=== PATIENT | male | born 1975 | race Caucasian/White ===

== ENCOUNTER 2017-08-18 13:06 | Inpatient (IN) | payer MEDICAID, OTHER ==
[2017-08-18] MEDS: SOD CHLORIDE 0.9% 1,000 ML IV ×2 (16:30→18:45)
[2017-08-18] MEDS: INSULIN LISPRO 100 UNIT/ML VIAL SC (16:31)
[2017-08-18 16:44] LABS: ABNORMAL IP MESSAGE 1; HEMATOCRIT 37.6 % (42.0-52.0); HEMOGLOBIN 13.6 g/dl (14.0-18.0); MEAN CORPUSCULAR HEMOGLOBIN 34.4 pg (29.0-33.0); MEAN CORPUSCULAR HGB CONC 36.2 g/dl (32.0-37.0); MEAN CORPUSCULAR VOLUME 95.2 fl (82.0-101.0); MEAN PLATELET VOLUME 9.8 fl (7.4-10.4); PLATELET COUNT 173 10^3/UL (140-415); POSITIVE DIFF @See below; RED BLOOD COUNT 3.95 10^6/ul (4.70-6.10); RED CELL DISTRIBUTION WIDTH 11.4 % (11.5-14.5)
[2017-08-18 16:44] LABS: WHITE BLOOD COUNT 12.2 10^3/ul (4.8-10.8)
[2017-08-18 16:47] LABS: ADD UMIC YES; UR ASCORBIC ACID NEGATIVE (NEGATIVE); UR BILIRUBIN (Dip) NEGATIVE (NEGATIVE); UR BLOOD (Dip) 1+ mg/dL (NEGATIVE); UR CLARITY CLEAR (CLEAR); UR COLOR STRAW (YELLOW); UR GLUCOSE (Dip) 3+ mg/dL (NEGATIVE); UR KETONES (Dip) 2+ mg/dL (NEGATIVE); UR LEUKOCYTE ESTERASE (Dip) NEGATIVE Leu/ul (NEGATIVE); UR NITRITE (Dip) NEGATIVE (NEGATIVE); UR RBC 0 /HPF (0-5); UR SPECIFIC GRAVITY (Dip) 1.023 (1.003-1.030); UR TOTAL PROTEIN (Dip) 1+ mg/dl (NEGATIVE); UR UROBILINOGEN (Dip) NEGATIVE (NEGATIVE); UR WBC 0 /HPF (0-5)
[2017-08-18 16:56] LABS: ADD MAN DIFF? YES
[2017-08-18] MEDS: CEFTRIAXONE 1 GM/50 ML (PMX) 50 ML IVPB (17:03)
[2017-08-18 17:05] LABS: ALANINE AMINOTRANSFERASE 82 IU/L (13-69); ALBUMIN 4.7 g/dl (3.3-4.9); ALBUMIN/GLOBULIN RATIO 1.06; ALKALINE PHOSPHATASE 259 IU/L (42-121); ANION GAP 32 (8-16); ASPARTATE AMINO TRANSFERASE 62 IU/L (15-46); BILIRUBIN,INDIRECT 0.2 mg/dl (0-1.1); BILIRUBIN,TOTAL 0.2 mg/dl (0.2-1.3); BLOOD UREA NITROGEN 20 mg/dl (7-20); CALCIUM 10.6 mg/dl (8.4-10.2); CARBON DIOXIDE 13 mmol/L (21-31); CHLORIDE 87 mmol/L (97-110); CREATININE 0.85 mg/dl (0.61-1.24); GLUCOSE 392 mg/dl (70-220); LIPASE 64 U/L (23-300); POTASSIUM 3.9 mmol/L (3.5-5.1); SODIUM 128 mmol/L (135-144); TOTAL PROTEIN 9.1 g/dl (6.1-8.1)
[2017-08-18 17:15] LABS: BAND NEUTROPHILS % (M) 33 % (0-4); LYMPHOCYTES #M 0.7 10^3/ul (0.8-2.9); LYMPHOCYTES % (M) 6 % (15-51); MONOCYTE #M 1.3 10^3/ul (0.3-0.9); MONOCYTES % (M) 11 % (0-11); PLATELET ESTIMATE NORMAL; PROMYELOCYTES #M 0.1 10^3/ul (0-0); PROMYELOCYTES % (M) 1 % (0-0); SEG NEUT #M 6.5 10^3/ul (1.6-7.5); SEGMENTED NEUTROPHILS (M) % 49 % (39-77); SMUDGE%M 1 % (0-0)
[2017-08-18] MEDS ORDERED: morphine 2 MG INJ IV (17:30)
[2017-08-18] MEDS ORDERED: INSULIN HUMAN REGULAR 100 UNIT in SOD CHLORIDE 0.9% 99 ML IV (17:30)
[2017-08-18] MEDS ORDERED: ONDANSETRON 4 MG INJ IV (17:30)
[2017-08-18] MEDS ORDERED: NACL 0.9% 3 ML SYG IV (17:30)
[2017-08-18] MEDS ORDERED: DEXTROSE 50% 50 ML SYRINGE IV ×2 (17:30)
[2017-08-18] MEDS ORDERED: HYDROCODONE/APAP (5/325) TAB PO (17:30)
[2017-08-18] MEDS: ACCU-CHEK XX ×7 (17:30→23:30)
[2017-08-18] MEDS ORDERED: LORAZEPAM 2 MG INJ IV (17:30)
[2017-08-18] MEDS ORDERED: BISACODYL (EC) 5 MG TAB PO (17:30)
[2017-08-18 18:35] LABS: LACTIC ACID 1.3 mmol/L (0.5-2.0)
[2017-08-18] MEDS: AZITHROMYCIN 500MG/NS (PMX) 250 ML IVPB (18:39)
[2017-08-18] MEDS: POTASSIUM CHLORIDE (SR) 20 MEQ TAB PO (18:39)
[2017-08-18] MEDS: LACTATED RINGER'S 1,000 ML IV (18:39)
[2017-08-18 19:03] LABS: AADO2 Arterial 42.6 mmHg (7.0-24.0); Allen Test ACCEPTAB; Arterial Base Excess -8.6 mmol/L (-3.0-3); Arterial Blood Gas Oxygen Sat 95.5 mmHG (95.0-98.0); Arterial COHb 0.3 % (0.0-3.0); Arterial Fraction of Oxyhgb 95.1 % (93.0-99.0); Arterial HCO3 14.8 mmol/L (22.0-26.0); Arterial MetHb 0.1 % (0.0-1.5); Arterial Total Hemglobin 12.4 g/dl (12.0-18.0); Arterial pCO2 25.4 mmhg (35-45); MODE ROOM AIR; Site Right Radial
[2017-08-18 19:27] LABS: HEMOGLOBIN A1C 13.4 % (0-5.9)
[2017-08-18 19:30] LABS: PHOSPHORUS 2.8 mg/dl (2.5-4.9)
[2017-08-18 19:30] LABS: GLUCOSE, FASTING 227 mg/dl (70-110)
[2017-08-18 19:31] LABS: ALBUMIN 3.6 g/dl (3.3-4.9); ANION GAP 21 (8-16); BLOOD UREA NITROGEN 17 mg/dl (7-20); CALCIUM 8.4 mg/dl (8.4-10.2); CALCIUM 8.8 mg/dl (8.4-10.2); CARBON DIOXIDE 17 mmol/L (21-31); CHLORIDE 96 mmol/L (97-110); CHLORIDE 97 mmol/L (97-110); CREATININE 0.52 mg/dl (0.61-1.24); CREATININE 0.56 mg/dl (0.61-1.24); GLUCOSE 222 mg/dl (70-220); GLUCOSE 236 mg/dl (70-220); PHOSPHORUS 2.8 mg/dl (2.5-4.9); POTASSIUM 3.4 mmol/L (3.5-5.1); POTASSIUM 3.6 mmol/L (3.5-5.1); SODIUM 131 mmol/L (135-144)
[2017-08-18 19:50] LABS: MAGNESIUM 1.7 mg/dl (1.7-2.5)
[2017-08-18 20:10] LABS: LACTIC ACID 1.5 mmol/L (0.5-2.0)
[2017-08-18] MEDS: INSULIN HUMAN REGULAR 100 UNIT in SOD CHLORIDE 0.9% 99 ML IV (20:48)
[2017-08-18 20:52] LABS: ANION GAP 18 (8-16); BLOOD UREA NITROGEN 16 mg/dl (7-20); CALCIUM 8.7 mg/dl (8.4-10.2); CARBON DIOXIDE 18 mmol/L (21-31); CHLORIDE 98 mmol/L (97-110); CREATININE 0.54 mg/dl (0.61-1.24); GLUCOSE 240 mg/dl (70-220); POTASSIUM 3.4 mmol/L (3.5-5.1); SODIUM 131 mmol/L (135-144)
[2017-08-18] MEDS: POTASSIUM CHLORIDE 10 MEQ in SOD CHLORIDE 0.9% 1,000 ML IV (21:44)
[2017-08-18 22:22] LABS: ANION GAP 19 (8-16); BLOOD UREA NITROGEN 13 mg/dl (7-20); CALCIUM 8.8 mg/dl (8.4-10.2); CARBON DIOXIDE 17 mmol/L (21-31); CHLORIDE 100 mmol/L (97-110); CREATININE 0.45 mg/dl (0.61-1.24); GLUCOSE 195 mg/dl (70-220); POTASSIUM 3.1 mmol/L (3.5-5.1); SODIUM 133 mmol/L (135-144)
[2017-08-18 22:27] LABS: LACTIC ACID 1.2 mmol/L (0.5-2.0)
[2017-08-19] MEDS: DEXTROSE 5%-0.9% NACL 1,000 ML IV ×2 (00:57→10:30)
[2017-08-19 00:58] LABS: MAGNESIUM 1.6 mg/dl (1.7-2.5)
[2017-08-19] MEDS: POTASSIUM CHLORIDE 40 MEQ in SOD CHLORIDE 0.9% 250 ML IVPB (01:01)
[2017-08-19] MEDS: ACETAMINOPHEN 325 MG TAB PO (01:03)
[2017-08-19] MEDS: ACCU-CHEK XX ×3 (01:30→03:30)
[2017-08-19 01:52] LABS: ANION GAP 13 (8-16); BLOOD UREA NITROGEN 11 mg/dl (7-20); CALCIUM 8.6 mg/dl (8.4-10.2); CARBON DIOXIDE 22 mmol/L (21-31); CHLORIDE 104 mmol/L (97-110); CREATININE 0.36 mg/dl (0.61-1.24); GLUCOSE 68 mg/dl (70-220); PHOSPHORUS 1.3 mg/dl (2.5-4.9); SODIUM 136 mmol/L (135-144)
[2017-08-19] MEDS ORDERED: POTASSIUM CHLORIDE 10 MEQ in DEXTROSE 5%-0.9% NACL 1,000 ML IV (02:00)
[2017-08-19 02:04] LABS: POTASSIUM 2.8 mmol/L (3.5-5.1)
[2017-08-19] MEDS: POTASSIUM CHLORIDE 10 MEQ in DEXTROSE 5%-0.9% NACL 1,000 ML IV ×2 (02:16→12:17)
[2017-08-19] MEDS: INSULIN ASPART [NOVOLOG] 3 ML PEN SC ×6 (05:00→20:35)
[2017-08-19] MEDS ORDERED: DEXTROSE 50% 50 ML SYRINGE IV ×2 (05:30)
[2017-08-19] MEDS ORDERED: GLUCOSE GEL 15 GRAM TUBE PO ×2 (05:30)
[2017-08-19] MEDS ORDERED: GLUCAGON 1 MG INJ IM (05:30)
[2017-08-19] MEDS ORDERED: GLUCOSE GEL 15 GRAM TUBE BUCCAL (05:30)
[2017-08-19] MEDS: PANTOPRAZOLE 40 MG INJ IV (06:10)
[2017-08-19 06:47] LABS: WHITE BLOOD COUNT 10.3 10^3/ul (4.8-10.8)
[2017-08-19 06:47] LABS: ABNORMAL IP MESSAGE 1; HEMATOCRIT 31.5 % (42.0-52.0); HEMOGLOBIN 11.5 g/dl (14.0-18.0); MEAN CORPUSCULAR HEMOGLOBIN 34.2 pg (29.0-33.0); MEAN CORPUSCULAR HGB CONC 36.5 g/dl (32.0-37.0); MEAN CORPUSCULAR VOLUME 93.8 fl (82.0-101.0); PLATELET COUNT 142 10^3/UL (140-415); POSITIVE DIFF @See below; RED BLOOD COUNT 3.36 10^6/ul (4.70-6.10); RED CELL DISTRIBUTION WIDTH 11.4 % (11.5-14.5)
[2017-08-19 07:01] LABS: ADD MAN DIFF? YES
[2017-08-19 07:09] LABS: ALBUMIN 2.7 g/dl (3.3-4.9); ANION GAP 11 (8-16); BLOOD UREA NITROGEN 9 mg/dl (7-20); CALCIUM 8.2 mg/dl (8.4-10.2); CARBON DIOXIDE 23 mmol/L (21-31); CHLORIDE 104 mmol/L (97-110); CREATININE 0.33 mg/dl (0.61-1.24); GLUCOSE 142 mg/dl (70-220); PHOSPHORUS 2.2 mg/dl (2.5-4.9); POTASSIUM 3.4 mmol/L (3.5-5.1); SODIUM 135 mmol/L (135-144)
[2017-08-19 07:12] LABS: ALANINE AMINOTRANSFERASE 70 IU/L (13-69); ALBUMIN 2.9 g/dl (3.3-4.9); ALBUMIN/GLOBULIN RATIO 0.82; ALKALINE PHOSPHATASE 194 IU/L (42-121); ANION GAP 11 (8-16); ASPARTATE AMINO TRANSFERASE 92 IU/L (15-46); BILIRUBIN,INDIRECT 0.2 mg/dl (0-1.1); BILIRUBIN,TOTAL 0.2 mg/dl (0.2-1.3); BLOOD UREA NITROGEN 9 mg/dl (7-20); CALCIUM 8.7 mg/dl (8.4-10.2); CARBON DIOXIDE 24 mmol/L (21-31); CHLORIDE 103 mmol/L (97-110); CREATININE 0.38 mg/dl (0.61-1.24); GLUCOSE 156 mg/dl (70-220); MAGNESIUM 1.6 mg/dl (1.7-2.5); POTASSIUM 3.2 mmol/L (3.5-5.1); SODIUM 135 mmol/L (135-144); TOTAL PROTEIN 6.4 g/dl (6.1-8.1)
[2017-08-19 07:40] LABS: MAGNESIUM 1.7 mg/dl (1.7-2.5)
[2017-08-19 07:46] LABS: BAND NEUTROPHILS #M 3.9 10^3/ul (0.0-0.6); BAND NEUTROPHILS % (M) 38 % (0-4); LYMPHOCYTES #M 0.7 10^3/ul (0.8-2.9); LYMPHOCYTES % (M) 7 % (15-51); MONOCYTE #M 1.1 10^3/ul (0.3-0.9); MONOCYTES % (M) 11 % (0-11); MYELOCYTES #M 0.1 10^3/ul (0.0-0.0); MYELOCYTES % (M) 1 % (0-0); PLATELET ESTIMATE NORMAL; POLYCHROMASIA 1+ (0-0); REACTIVE LYMPHOCYTES #M 0.1 10^3/ul (0.0-0.0); REACTIVE LYMPHOCYTES% (M) 1 % (0-0); SEG NEUT #M 4.7 10^3/ul (1.6-7.5); SEGMENTED NEUTROPHILS (M) % 42 % (39-77); SMUDGE%M 4 % (0-0)
[2017-08-19] MEDS: INSULIN GLARGINE [LANtus] 3 ML PEN SC (08:15)
[2017-08-19] MEDS: CEFTRIAXONE 1 GM/50 ML (PMX) 50 ML IVPB (10:45)
[2017-08-19] MEDS: MAGNESIUM SULFATE 2 GM/50 ML 50 ML IVPB (10:45)
[2017-08-19] MEDS: POTASSIUM CHLORIDE 100 ML IVPB (11:00)
[2017-08-19] MEDS ORDERED: GUAIFENESIN/CODEINE 5ML CUP PO (13:30)
[2017-08-19] MEDS: GUAIFENESIN/DM 5ML CUP PO ×2 (13:36→18:26)
[2017-08-19] MEDS ORDERED: INSULIN ASPART [NOVOLOG] 3 ML PEN SC (17:55)
[2017-08-19] MEDS: AZITHROMYCIN 500MG/NS (PMX) 250 ML IVPB (18:26)
[2017-08-20] MEDS ORDERED: ACCU-CHEK XX ×2 (02:00)
[2017-08-20] MEDS: ACCU-CHEK XX (02:06)
[2017-08-20] MEDS: PANTOPRAZOLE 40 MG INJ IV (05:40)
[2017-08-20 05:51] LABS: ADD MAN DIFF? NO
[2017-08-20 05:59] LABS: BASOPHILS % 0.5 % (0.0-2.0); EOSINOPHILS % 0.3 % (0.0-7.0); HEMOGLOBIN 12.1 g/dl (14.0-18.0); LYMPHOCYTES # 0.9 10^3/ul (0.8-2.9); LYMPHOCYTES % 15.1 % (15.0-51.0); MEAN CORPUSCULAR HEMOGLOBIN 34.8 pg (29.0-33.0); MEAN CORPUSCULAR HGB CONC 36.7 g/dl (32.0-37.0); MEAN CORPUSCULAR VOLUME 94.8 fl (82.0-101.0); MEAN PLATELET VOLUME 9.9 fl (7.4-10.4); MONOCYTES % 15.9 % (0.0-11.0); NEUTROPHILS % 66.2 % (39.0-77.0); PLATELET COUNT 154 10^3/UL (140-415); RED BLOOD COUNT 3.48 10^6/ul (4.70-6.10); RED CELL DISTRIBUTION WIDTH 11.4 % (11.5-14.5)
[2017-08-20 06:58] LABS: ANION GAP 14 (8-16); BLOOD UREA NITROGEN 10 mg/dl (7-20); CALCIUM 8.8 mg/dl (8.4-10.2); CARBON DIOXIDE 24 mmol/L (21-31); CHLORIDE 99 mmol/L (97-110); CREATININE 0.37 mg/dl (0.61-1.24); GLUCOSE 206 mg/dl (70-220); MAGNESIUM 1.9 mg/dl (1.7-2.5); PHOSPHORUS 2.6 mg/dl (2.5-4.9); SODIUM 134 mmol/L (135-144)
[2017-08-20 07:12] LABS: POTASSIUM 2.8 mmol/L (3.5-5.1)
[2017-08-20 08:04] LABS: CHOL/HDL RATIO 2.2 RATIO; HDL CHOLESTEROL 46 mg/dl (27-67); LDL CHOLESTEROL,CALCULATED 38 mg/dl; TRIGLYCERIDES 90 mg/dl (0-149)
[2017-08-20 08:04] LABS: CHOLESTEROL 102 mg/dl (100-200)
[2017-08-20] MEDS: INSULIN ASPART [NOVOLOG] 3 ML PEN SC ×7 (08:51→20:49)
[2017-08-20] MEDS: INSULIN GLARGINE [LANtus] 3 ML PEN SC (08:52)
[2017-08-20] MEDS: POTASSIUM CHLORIDE 100 ML IVPB ×3 (09:22→14:03)
[2017-08-20] MEDS: CEFTRIAXONE 1 GM/50 ML (PMX) 50 ML IVPB (12:19)
[2017-08-20 17:52] LABS: CREATININE, RANDOM URINE 27 mg/dL (20-370); MICROALBUMIN 8.9 mg/dL; MICROALBUMIN/CREATININE RATIO 330 (<30)
[2017-08-21] MEDS: ACCU-CHEK XX (02:37)
[2017-08-21] MEDS: PANTOPRAZOLE (EC) 40 MG TAB PO (05:16)
[2017-08-21 05:21] LABS: ADD MAN DIFF? NO
[2017-08-21 05:26] LABS: BASOPHILS % 0.2 % (0.0-2.0); EOSINOPHILS % 0.4 % (0.0-7.0); HEMATOCRIT 33.3 % (42.0-52.0); HEMOGLOBIN 12.2 g/dl (14.0-18.0); LYMPHOCYTES % 19.2 % (15.0-51.0); MEAN CORPUSCULAR HEMOGLOBIN 34.4 pg (29.0-33.0); MEAN CORPUSCULAR HGB CONC 36.6 g/dl (32.0-37.0); MEAN CORPUSCULAR VOLUME 93.8 fl (82.0-101.0); MEAN PLATELET VOLUME 9.5 fl (7.4-10.4); MONOCYTE # 0.8 10^3/ul (0.3-0.9); MONOCYTES % 16.2 % (0.0-11.0); NEUTROPHILS % 60.4 % (39.0-77.0); PLATELET COUNT 162 10^3/UL (140-415); RED BLOOD COUNT 3.55 10^6/ul (4.70-6.10); RED CELL DISTRIBUTION WIDTH 11.3 % (11.5-14.5)
[2017-08-21 05:59] LABS: ANION GAP 13 (8-16); BLOOD UREA NITROGEN 12 mg/dl (7-20); CALCIUM 8.9 mg/dl (8.4-10.2); CARBON DIOXIDE 27 mmol/L (21-31); CHLORIDE 100 mmol/L (97-110); CREATININE 0.39 mg/dl (0.61-1.24); GLUCOSE 219 mg/dl (70-220); MAGNESIUM 1.9 mg/dl (1.7-2.5); POTASSIUM 3.3 mmol/L (3.5-5.1); SODIUM 137 mmol/L (135-144)
[2017-08-21] MEDS: INSULIN GLARGINE [LANtus] 3 ML PEN SC (09:06)
[2017-08-21] MEDS: INSULIN ASPART [NOVOLOG] 3 ML PEN SC ×4 (09:06→12:26)
[2017-08-21] MEDS: POTASSIUM CHLORIDE 20 MEQ POWDER FOR ORAL SOLN PO (12:12)
== END 2017-08-21 15:45 | disposition home or self-care (01) | DRG 871 ==
LOC: MS1 17:25 → FTE 13:06
PROVIDERS: Internal Medicine
DX: A41.9 Sepsis, unspecified organism (principal); E11.10 Type 2 diabetes mellitus with ketoacidosis without coma; J18.9 Pneumonia, unspecified organism; E87.1 Hypo-osmolality and hyponatremia; J06.9 Acute upper respiratory infection, unspecified; Z79.84 Long term (current) use of oral hypoglycemic drugs
CPT/HCPCS: 36415; 36600; 71045; 76705; 80048; 80053; 80061; 80069; 81001; 82043; 82803; 82947; 82962; 83036; 83605; 83690; 83735; 84100; 85025; 87040; 87400; 96365; 96367; 96372; 96375; 99291-25

== ENCOUNTER → 2017-10-13 | Outpatient (CLI) | payer MEDICAID | END | disposition home or self-care (01) | LOC: DIB 12:59 | DX: Z02.9 Encounter for administrative examinations, unspecified (principal) ==

== ENCOUNTER 2018-10-05 14:01 | Emergency (ER) | payer SELFPAY, MEDICAID ==
[2018-10-05 16:46] LABS: ABNORMAL IP MESSAGE 1; HEMATOCRIT 34.2 % (42.0-52.0); HEMOGLOBIN 12.3 g/dl (14.0-18.0); MEAN CORPUSCULAR VOLUME 97.4 fl (82.0-101.0); MEAN PLATELET VOLUME 9.6 fl (7.4-10.4); PLATELET COUNT 88 10^3/UL (140-415); POSITIVE DIFF @See below; RED BLOOD COUNT 3.51 10^6/ul (4.70-6.10); RED CELL DISTRIBUTION WIDTH 11.7 % (11.5-14.5)
[2018-10-05 16:46] LABS: WHITE BLOOD COUNT 3.8 10^3/ul (4.8-10.8)
[2018-10-05 16:54] LABS: ADD MAN DIFF? YES
[2018-10-05 17:13] LABS: ALANINE AMINOTRANSFERASE 52 IU/L (13-69); ALBUMIN 4.8 g/dl (3.3-4.9); ALKALINE PHOSPHATASE 358 IU/L (42-121); ANION GAP 20 (5-13); ASPARTATE AMINO TRANSFERASE 137 IU/L (15-46); BILIRUBIN,INDIRECT 0.4 mg/dl (0-1.1); BILIRUBIN,TOTAL 0.4 mg/dl (0.2-1.3); BLOOD UREA NITROGEN 9 mg/dl (7-20); CALCIUM 9.6 mg/dl (8.4-10.2); CARBON DIOXIDE 24 mmol/L (21-31); CHLORIDE 91 mmol/L (97-110); CREATININE 0.36 mg/dl (0.61-1.24); Estimated GFR > 60 mL/min (>60); GLUCOSE 389 mg/dl (70-220); POTASSIUM 4.2 mmol/L (3.5-5.1); SODIUM 135 mmol/L (135-144); TOTAL PROTEIN 8.8 g/dl (6.1-8.1)
[2018-10-05 17:49] LABS: LYMPHOCYTES #M 0.7 10^3/ul (0.8-2.9); LYMPHOCYTES % (M) 21 % (15-51); MONOCYTE #M 0.2 10^3/ul (0.3-0.9); MONOCYTES % (M) 6 % (0-11); PLATELET ESTIMATE NORMAL; REACTIVE LYMPHOCYTES% (M) 2 % (0-0); SEGMENTED NEUTROPHILS (M) % 71 % (39-77); SMUDGE%M 30 % (0-0)
== END 2018-10-05 20:08 | disposition left against medical advice (07) ==
LOC: FTE 20:08
DX: J31.0 Chronic rhinitis (principal); D61.818 Other pancytopenia; R74.0 Nonspecific elevation of levels of transaminase and lactic acid dehydrogenase [LDH]; E11.65 Type 2 diabetes mellitus with hyperglycemia; Z79.4 Long term (current) use of insulin
CPT/HCPCS: 80053; 85025; 99283